=== PATIENT | male | born 1970 | race Two or more races ===

== ENCOUNTER 2017-04-25 13:44 | Emergency (ER) | payer BC ==
[2017-04-25] MEDS ORDERED: Lidocaine 2% Viscous Solution 15 ML Cup PO ONE (13:59)
[2017-04-25] MEDS ORDERED: Benzocaine 20% Topical Spray UD MUCMEM ONE (13:59)
[2017-04-25] MEDS ORDERED: Ketorolac 60 MG/2 ML SDV IM ONE (13:59)
[2017-04-25] MEDS ORDERED: cefTRIAXone 1,000 MG in Lidocaine 1% 4 ML IM ONE (14:04)
--- NOTE | 2017-04-25 14:04 | EDM.PDOC ---
ED HPI GENERAL MEDICAL PROBLEM - General Chief Complaint: General Stated Complaint: INFECTION IN MOUTH Time Seen by Provider: 04/25/17 13:51 Source of Information: Reports: Patient History Limitations: Reports: No Limitations - History of Present Illness INITIAL COMMENTS - FREE TEXT/NARRATIVE: HISTORY AND PHYSICAL: History of present illness: Patient is a 47-year-old male who presents to the emergency room today with complaints of dental pain. He states he had a tooth extraction 1 month ago in [place]. Reports he did not have any problems since the dental extraction but over the past 2 days has had increased pain and swelling to the right posterior molar where he did have the tooth removed. States the pain and swelling started after eating some beef jerky. He did call/see a local dentist who evaluated him earlier today and prescribed him Delmar 7.5/325 and clindamycin 300 mg QID x 7 days. He was encouraged to come to the emergency room to "see if we would give him something stronger". He denies any fever, chills, chest pain, shortness of breath, abdominal pain, nausea, vomiting or diarrhea. No difficulty with speech or swallowing. Tdap uptodate Review of systems: As per history of present illness and below otherwise all systems reviewed and negative. Past medical history: As per history of present illness and as reviewed below otherwise noncontributory. Surgical history: As per history of present illness and as reviewed below otherwise noncontributory. Social history: No reported history of drug or alcohol abuse. Family history: As per history of present illness and as reviewed below otherwise noncontributory. Physical exam: General: Well-developed and well-nourished 47-year-old male. Alert and oriented. Nontoxic appearing and in no acute distress. HEENT: Atraumatic, normocephalic, pupils reactive, negative for conjunctival pallor or scleral icterus, mucous membranes moist, throat clear, neck supple, nontender, trachea midline. #[id number] [id number] extracted with localized swelling/ tenderness. Does have moderate swelling and tenderness to the right posterior molar/jawline. The swelling does not extend into the neck and he does not have any lymphadenopathy. NO drooling or trismus. No meningel signs. Lungs: Clear to auscultation, breath sounds equal bilaterally, chest nontender. Heart: S1S2, regular rate and rhythm Abdomen: Soft, nondistended, nontender. Negative for masses or hepatosplenomegaly. Negative for costovertebral tenderness. Pelvis: Stable nontender. Genitourinary: Deferred. Rectal: Deferred. Extremities: Atraumatic, negative for cords or calf pain. Neurovascular unremarkable. Neuro: Awake, alert, oriented. Cranial nerves II through XII unremarkable. Cerebellum unremarkable. Motor and sensory unremarkable throughout. Exam nonfocal. The patient has prescriptions with him that he has not yet filled, Clindamycin and Delmar. Patient has no errythema over the jaw nor does he have a fever. This appears to be a dental abscess. I will give him Rocephin and Toradol while he is here along with dental balls to be taken home. Vital signs have improved since arrival. Encouraged him to fill his dentist prescriptions and take those as directed. We discussed signs and symptoms that would prompt him to come back to the emergency room. Patient voices understanding and is agreeable to plan of care. He denies any further questions at this time. Diagnostics: [] Therapeutics: Rocephin, Viscous Lidocaine/Hurricane [place] (Dental Balls), Toradol Impression: Dental Abscess Plan: 1. Please take the medications your dentist prescribed to you: Clindamycin 300 mg 4 times daily x 7 days. Take the Delmar as directed. 2. Here you've been given Rocephin IM (antibiotic), Toradol (anti-inflammatory) and dental balls (topical numbing agent) 3. Apply ice to the area (15 minutes on/off) over the next couple days 4. Follow up in the next couple days. Return to the ED as needed and as discussed. Definitive disposition and diagnosis as appropriate pending reevaluation and review of above. Duration: Day(s): Location: Reports: Face - Related Data Allergies Allergy/AdvReac Type Severity Reaction Status Date / Time No Known Allergies Allergy Verified 04/25/17 13:58 Home Meds: Home Meds Amoxicillin 500 mg BID 04/25/17 [History] metFORMIN [Glucophage] 1,000 mg DAILY 04/25/17 [History] ED ROS GENERAL - Review of Systems Review Of Systems: ROS reveals no pertinent complaints other than HPI. ED EXAM, GENERAL - Physical Exam Exam: See Below (See dictation) Course - Vital Signs Last Recorded V/S: Last Vital Signs Temp 98.1 F 04/25/17 13:55 Pulse 130 H 04/25/17 13:55 Resp 18 04/25/17 13:55 BP 147/98 H 04/25/17 13:55 Pulse Ox 95 04/25/17 13:55 - Orders/Labs/Meds Meds: Medications Discontinued Medications Generic Name Dose Route Start Last Admin Trade Name Remi PRN Reason Stop Dose Admin Benzocaine 2 each 04/25/17 13:59 04/25/17 14:09 Hurricaine One 20% MUCMEM 04/25/17 14:00 2 each ONETIME ONE Administration Ceftriaxone Sodium 1,000 mg/ 4 mls @ 4 mls/sec 04/25/17 14:04 04/25/17 14:19 Lidocaine HCl IM 04/25/17 14:05 4 mls/sec ONETIME ONE Administration Ketorolac Tromethamine 60 mg 04/25/17 13:59 04/25/17 14:09 Toradol IM 04/25/17 14:00 60 mg ONETIME ONE Administration Lidocaine HCl 15 ml 04/25/17 13:59 04/25/17 14:09 Xylocaine 2% Viscous PO 04/25/17 14:00 15 ml ONETIME ONE Administration Departure - Departure Time of Disposition: 14:14 Disposition: Home, Self-Care 01 Clinical Impression: Dental abscess - Discharge Information Referrals: PCP,None [Primary Care Provider] - Forms: ED Department Discharge Additional Instructions: My general discharge The following information is given to patients seen in the emergency department who are being discharged to home. This information is to outline your options for follow-up care. We provide all patients seen in our emergency department with a follow-up referral. The need for follow-up, as well as the timing and circumstances, are variable depending upon the specifics of your emergency department visit. If you don't have a primary care physician on staff, we will provide you with a referral. We always advise you to contact your personal physician following an emergency department visit to inform them of the circumstance of the visit and for follow-up with them and/or the need for any referrals to a consulting specialist. The emergency department will also refer you to a specialist when appropriate. This referral assures that you have the opportunity for follow-up care with a specialist. All of these measure are taken in an effort to provide you with optimal care, which includes your follow-up. Under all circumstances we always encourage you to contact your private physician who remains a resource for coordinating your care. When calling for follow-up care, please make the office aware that this follow-up is from your recent emergency room visit. If for any reason you are refused follow-up, please contact the [facility] Emergency Department at and asked to speak to the emergency department charge nurse. [facility] [address] [place] [id number] 1. Please take the medications your dentist prescribed to you: Clindamycin 300 mg 4 times daily x 7 days. Take the Delmar as directed. You may take Tylenol and/ or ibuprofen as needed for breakthrough pain. 2. Here you've been given Rocephin IM (antibiotic), Toradol (anti-inflammatory) and dental balls (topical numbing agent) 3. Apply ice to the area (15 minutes on/off) routinely over the next 2-3 days 4. Follow up in the next couple days. Return to the ED as needed and as discussed.
== END 2017-04-25 15:15 | disposition home or self-care (01) ==
LOC: MW.ED 13:44
DX: K04.7 Periapical abscess without sinus (principal); Z79.84 Long term (current) use of oral hypoglycemic drugs
CPT/HCPCS: 96372; 99282; A9270; J0696; J1885